=== PATIENT | female | born 1965 | race Caucasian/White ===

== ENCOUNTER 2017-10-24 15:16 | Emergency (ER) | payer OTHER, BC ==
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
== END 2017-10-24 17:08 | disposition home or self-care (01) ==
LOC: JD.ED 15:16
DX: S40.022A Contusion of left upper arm, initial encounter (principal); S40.021A Contusion of right upper arm, initial encounter; M62.838 Other muscle spasm; V49.9XXA Car occupant (driver) (passenger) injured in unspecified traffic accident, initial encounter
CPT/HCPCS: 99284